=== PATIENT | male | born 1965 | race Caucasian/White ===

== ENCOUNTER 2025-02-09 00:52 | Day surgery (SDC) | payer BC, SELFPAY ==
[2025-01-28 10:14] VITALS: BMI 24.4
--- OUTSIDE RECORDS SUMMARY | 2025-02-09 00:58 | XMS_ITS | Continuity of Care Document ---
Author Organization [facility] Address [address] [place] [address] Phone Care Team Providers Care Home Lending Officer Name Role Phone Mike Clark DO Unavailable Unavailable Allergies, Adverse Reactions, Alerts Substance Reaction Status Criticality Sulfa (Sulfonamide Antibiotics) Rash Active No Information Medications Medication Instructions Dosage Effective Dates (start - stop) Status Comments CYCLOBENZAPRINE 10 MG TABLET TAKE 1 TABLET BY MOUTH THREE TIMES A DAY NEEDED - Active Ambien CR 12.5 mg tablet,extended release take 1 tablet by oral route every day at bedtime as needed 12.5 MG - Active CELECOXIB 100 MG CAPSULE TAKE 1 CAPSULE BY MOUTH TWICE A DAY NEEDED - Active Adderall XR 30 mg capsule,extended release take 1 capsule by oral route every day in the morning upon awakening 30 MG - Active QUETIAPINE FUMARATE 300 MG TAB TAKE 1 TABLET BY MOUTH EVERY DAY - Active bupropion HCl XL 300 mg 24 hr tablet, extended release take 1 tablet by oral route every day 300 MG - Active sildenafil 100 mg tablet TAKE 1 TABLET BY ORAL ROUTE EVERY DAY NEEDED APPROXIMATELY 1 HOUR BEFORE SEXUAL ACTIVITY - Active FOLIC ACID 1MG TABS 2 QD-daily - Activ e multivitamin tablet - Active Calcium 500 500 mg calcium (1,250 mg) tablet 1 po qd - Active CYCLOBENZAPRINE 10 MG TABLET TAKE 1 TABLET BY MOUTH THREE TIMES A DAY NEEDED - No Longer Active Procedures Procedure Date Pt inelig neg scrn depres PREVENTATIVE-EST: 40-64 BODY MASS INDEX DOCD SYST BP LT 130 MM HG DIAST BP < 80 MM HG GENERAL HEALTH PANEL FERRITIN LEVEL FOLIC ACID (S) (FOLATE) IRON (FE), TOTAL TIBC, & % SATURATION LIPID PANEL PSA, TOTAL VITAMIN B12 (SERUM) VITAMIN D, 25-HYDROXY ROUTINE VENIPUNCTURE OFFICE [id number] BODY MASS INDEX DOCD SYST BP LT 130 MM HG DIAST BP 80-89 MM HG Pt inelig neg scrn depres OFFICE [id number]-UAD-[id number] BODY MASS INDEX DOCD SYST BP GE 130 - 139MM HG DIAST BP 80-89 MM HG Pt inelig neg scrn depres OFFICE [id number]-UNF-[id number] BODY MASS INDEX DOCD SYST BP >= 140 MM HG6 IT DIAST BP 80-89 MM HG Pt inelig neg scrn depres IMMUN ADMIN (INC PERCUTANEOUS) SINGLE, F IRST INJ FLU VAC NO PRSV 4 ERIN, 0.5mL DOSAGE CBC, INC PLATELETS AND DIFFERENTIAL COMPREHEN METABOLIC PANEL CMP FERRITIN LEVEL FOLIC ACID (S) (FOLATE) IRON (FE), TOTAL TIBC, & % SATURATION LIPID PANEL PSA, TOTAL ROUTINE VENIPUNCTURE PREVENTATIVE-EST: 40-64 BODY MASS INDEX DOCD SYST BP LT 130 MM HG DIAST BP < 80 MM HG Pt inelig neg scrn depres CBC, INC PLATELETS AND DIFFERENTIAL FERRITIN LEVEL FOLIC ACID (S) (FOLATE) IRON (FE), TOTAL TIBC, & % SATURATION VITAMIN B12 (SERUM) ROUTINE VENIPUNCTURE OFFICE [id number]-TQG-EJYGTECZ BODY MASS INDEX DOCD SYST BP LT 130 MM HG DIAST BP < 80 MM HG Pt inelig neg scrn depres IMMUN ADMIN (INC PERCUTANEOUS) SINGLE, F IRST INJ FLU VAC NO PRSV 4 ERIN, 0.5mL DOSAGE CBC, INC PLATELETS AND DIFFERENTIAL COMPREHEN METABOLIC PANEL CMP LIPID PANEL PSA, TOTAL ROUTINE VENIPUNCTURE OFFICE UZYEY-NPJ-BTUQAZEZ BODY MASS INDEX DOCD SYST BP GE 130 - 139MM HG DIAST BP < 80 MM HG Pt inelig neg scrn depres OFFICE UQZMK-NMI-UQKZAEPB BODY MASS INDEX DOCD SYST BP LT 130 MM HG DIAST BP 80-89 MM HG Pt inelig neg scrn depres IMMUN ADMIN (INC PERCUTANEOUS) SINGLE, F IRST INJ FLU VAC NO PRSV 4 ERIN, 0.5mL DOSAGE OFFICE ZQMRT-DMW-CIXXOQGS BODY MASS INDEX DOCD SYST BP >= 140 MM HG6 IT DIAST BP 80-89 MM HG Pt inelig neg scrn depres DESTRUCT BENIGN LESIONS OTHE R THAN SKIN TAGS OR CUTANEOUS VASCULAR LESIONS UP TO OFFICE [id number]-IJK-GDTQBAGR BODY MASS INDEX DOCD SYST BP GE 130 - 139MM HG DIAST BP 80-89 MM HG Pt inelig neg scrn depres OFFICE DPSKN-GZE-HWLAWTZT BODY MASS INDEX DOCD SYST BP GE 130 - 139MM HG DIAST BP 80-89 MM HG Pt inelig neg scrn depres OFFICE [id number]-[id number]-[id number] BODY MASS INDEX DOCD SYST BP LT 130 MM HG DIAST BP 80-89 MM HG Pt inelig neg scrn depres OFFICE RYRAX-BVW-PRFALXTU BODY MASS INDEX DOCD SYST BP LT 130 MM HG DIAST BP < 80 MM HG Pt inelig neg scrn depres OFFICE JFAKZ-PCU-LTIEMVEA BODY MASS INDEX DOCD SYST BP GE 130 - 139MM HG DIAST BP < 80 MM HG Pt inelig neg scrn depres OFFICE [id number]-VUI-FQJRDSQG Pt inelig neg scrn depres OFFICE MZADG-BBM-DBGKIBCI BODY MASS INDEX DOCD SYST BP LT 130 MM HG DIAST BP < 80 MM HG Pt inelig neg scrn depres OFFICE IKREY-MTJ-KOFTJWCU BODY MASS INDEX DOCD SYST BP LT 130 MM HG DIAST BP < 80 MM HG Pt inelig neg scrn depres OFFICE QMKXE-RZL-YTTTEVYA BODY MASS INDEX DOCD SYST BP >= 140 MM HG6 IT DIAST BP >= 90 MM HG OFFICE LUESW-BAR-NBXKKJEM BODY MASS INDEX DOCD SYST BP GE 130 - 139MM HG DIAST BP 80-89 MM HG Advance Directives Directive Yes / No Effective Date File Name No Information Encounters Encounter Description Practice Location Reason(s) For Visit Diagnoses Date Provider Providers Copied on Encounter [facility], [address], [place], [place], [address] , tel:[phone] [employer] [facility] No Information 0 5 Eduardo Mckeon. [address], [address], [place], [place], [address], . tel:[phone] [facility], [address], [place], [place], [address] , tel: [phone] [employer] No Information 5 Eduardo Mckeon. [address], [address], [place], [place], [address], . tel:[phone] [facility], [address], [place], [place], [address] , tel: [phone] [employer] No Information 5 Eduardo Mckeon. [address], [address], [place], [place], [address], . tel:[phone] [facility], [address], [place], [place], [address] , tel: [phone] [facility] No Information 5 Eduardo Mckeon. [address], [address], [place], [place], [address], [place]. tel:[phone] [facility], [address], [place], [address] , tel: [phone] [employer] [facility] No Information 8 5 Eduardo Mckeon. [address], [address], [place], [place], [address], [place]. tel:[phone] [facility], [address], [place], [address] , [place] tel: [phone] [facility] No Information 4 Eduardo Mckeon. [address] [facility] [address] , [address], [place], [place], [address], [place]. tel:[phone] PREVENTATIVE -EST: 40-64 [employer], [address], [place], [address] , [place] tel: [phone] [facility] preventive exam (chief complaint)F ollow up chronic conditions (chief complaint) Ankylosing spondylitis of site in spineCrohn's disease without complication, unspecified gastrointestinal tract locationRecurren t major depressive disorder, in full remissionPsychop hysiological insomniaADHD, predominantly inattentive typeEncounter for general adult medical examination with abnormal findingsOther terminal worker (current) drug therapyProstate cancer screeningScreeni ng for lipoid disordersAlcohol ism in remission 4 Eduardo Mckeon. [address] [facility] [address] , [address], [place], [place], [address], [place]. tel:[phone] Referring Provider: Mike Clark, [address] [place] [address] [address], [place], [address] . tel:[phone] [facility], [address], [place], [place], [address] , [place] tel: [phone] [facility] No Information 4 Arcelia Fountain. [address] [facility] , [address], [place], [place], [address], [place]. tel:[phone] [facility], [address], [place], [place], [address] , [place] tel: [phone] [facility] No Information 4 Fadi Steele. [address] [facility], [address], [place], [place], [address], . tel:[phone] OFFICE JYAGJ-JUF-VO PANDED [facility], [address], [place], [place], [address] , tel: [phone] [facility] acute problem (chief complaint) Body mass index [BMI] 26.0-26.9, adultPlantar fasciitis, left Jun- 4 Eduardo Mckeon. [address], [address], [place], [place], [address], . tel:[phone] Referring Provider: Mike Clark, [address], [place], [address] . tel:[phone] OFFICE FNUGR-XHD-QV PANDED [facility], [address], [place], [place], [address] , tel: [phone] [facility] acute (chief complaint) Plantar fasciitis, leftBody mass index [BMI] 25.0-25.9, adult May- 4 Arcelia Fountain. [address], [address], [place], [place], [address], . tel:[phone] Referring Provider: Mike Clark, [address], [place], [address] . tel:[phone] [facility], [address], [place], [place], [address] , tel: [phone] [facility] Crohn's disease without complication, unspecified gastrointestinal tract locationColon cancer screening 4 Eduardo Mckeon. [address], [address], [place], [place], [address], [place]. tel:[phone] OFFICE JUENG-BRA-IE TAILED [facility], [address], [place], [place], [address] , tel: [phone] [facility] Follow up chronic conditions (chief complaint) ADHD, predominantly inattentive typeCrohn's disease without complication, unspecified gastrointestinal tract locationAnkylosi ng spondylitis of site in spinePsychophysi ological insomniaRecurren t major depressive disorder, in full remission 4 Eduardo Mckeon. [address], [address], [place], [place], [address], . tel:[phone] Referring Provider: Mike Clark, [address], [place], [address] . tel:[phone] PREVENTATIVE -EST: 40-64 [facility] [address], [address], [place], [place], [address] , tel: [phone] [facility] preventive exam (chief complaint)F ollow up chronic conditions (chief complaint) Encounter for general adult medical examination with abnormal findingsADHD, predominantly inattentive typeIron deficiency anemia, unspecified iron deficiency anemia typeCrohn's disease without complication, unspecified gastrointestinal tract locationAnkylosi ng spondylitis of site in spineRecurrent major depressive disorder, in full remissionPsychop hysiological insomniaOther fci (current) drug therapyScreening for lipoid disordersFolate deficiencyProsta te cancer screeningEncount er for immunizationAlco holism in remission 3 Eduardo Mckeon. [address], [address], [place], [place], [address], [place]. [phone] Referring Provider: Mike Clark, [address], [place], [address] . tel:[phone] [facility], [address], [place], [place], [address] , tel: [phone] [facility] Anemia, unspecified type Apr-0 3 Eduardo [address]keon. [address] [facility] [address], [address], [place], [place], [address], [place]. [phone] OFFICE GRSPW-YOO-RJ TAILED [facility], [address], [place], [place], [address] , [place] tel: [phone] [facility] Follow up chronic conditions (chief complaint) ADHD, predominantly inattentive typePsychophysio logical insomniaCrohn's disease without complication, unspecified gastrointestinal tract locationRecurren t major depressive disorder, in full remissionAnkylos ing spondylitis of site in spineAnemia, unspecified type Mar- 3 Eduardo Mckeon. [address], [address], [place], [place], [address], [place]. tel:[phone] Referring Provider: Mike Clark, [address], [place], [address] . tel:[phone] [facility], [address], [place], [address] , [place] tel: [phone] [facility] No Information 3 Eduardo Mckeon. [address], [address], [place], [place], [address], [place]. tel:[phone] [facility], [address], [place], [place], [address] , tel: [phone] [facility] Iron deficiency anemia, unspecified iron deficiency anemia type 2 Eduardo Mckeon. [address] [facility] [address], [address], [place], [place], [address], [place]. tel:[phone] OFFICE BFJEI-YSK-UU TAILED [facility], [address], [place], [address] , [place] tel: [phone] [facility] Follow up chronic conditions (chief complaint) Recurrent major depressive disorder, in full remissionADHD, predominantly inattentive typeAnkylosing spondylitis of site in spineCrohn's disease without complication, unspecified gastrointestinal tract locationPsychoph ysiological insomniaLong term current use of therapeutic drugScreening for diabetes mellitusLipid screeningProstat e cancer screening 2 Eduardo Mckeon. [address], [address], [place], [place], [address], [place]. tel:[phone] Referring Provider: Mike Clark, [address], [place], [address] . tel:[phone] OFFICE TKGWC-YDU-LK TAILED [facility], [address], [place], [place], [address] , tel: [phone] [facility] Follow up chronic conditions (chief complaint) Screening for diabetes mellitusLong term current use of therapeutic drugLipid screeningProstat e cancer screeningADHD, predominantly inattentive typeRecurrent major depressive disorder, in full remissionPsychop hysiological insomniaAnkylosi ng spondylitis of site in spineCrohn's disease without complication, unspecified gastrointestinal tract location 2 Eduardo Mckeon. [address], [address], [place], [place], [address], . tel:[phone] Referring Provider: Mike Clark, [address], [place], [address] . tel:[phone] [facility], [address], [place], [place], [address] , tel: [phone] [facility] No Information 2 Eduardo Mckeon. [address] [facility] [address], [address], [place], [place], [address], [place]. tel:[phone] OFFICE TWTET-JDK-QP TAILED [facility], [address], [place], [place], [address] , tel: [phone] [facility] Follow up chronic conditions (chief complaint) Body mass index [BMI] 27.0-27.9, adultADHD, predominantly inattentive typeRecurrent major depressive disorder, in full remissionPsychop hysiological insomniaAnkylosi ng spondylitis of site in spineCrohn's disease without complication, unspecified gastrointestinal tract location 1 Eduardo Mckeon. [address], [address], [place], [place], [address], [place]. tel:[phone] Referring Provider: [address], [place], [address] . tel:[phone] OFFICE NNEPL-OBH-MM TAILED [facility], [address], [place], [place], [address] , tel: [phone] [facility] Follow up chronic conditions (chief complaint) Ankylosing spondylitis of site in spineCrohn's disease without complication, unspecified gastrointestinal tract locationADHD, predominantly inattentive typeActinic keratosisLipid screeningOSA (obstructive sleep apnea) 1 Eduardo Mckeon. [address], [address], [place], [place], [address], . tel:[phone] Referring Provider: Mike Clark, [address], [place], [address] . tel:[phone] OFFICE JYNQB-ASJ-ZK TAILED [facility], [address], [place], [place], [address] , tel: [phone] [facility] Follow up chronic conditions (chief complaint) Body mass index (BMI) 27.0-27.9, adultAnkylosing spondylitis of site in spineCrohn's disease without complication, unspecified gastrointestinal tract locationADHD, predominantly inattentive typeOSA (obstructive sleep apnea)Psychophys iological insomniaAlcoholi sm in remissionRecurre nt major depressive disorder, in full remission 1 Eduardo Mckeon. [address], [address], [place], [place], [address], . tel:[phone] Referring Provider: Mike Clark, [address], [place], [address] . tel:[phone] [facility], [address], [place], [place], [address] , tel: [phone] [facility] NEHA (obstructive sleep apnea) 1 Eduardo Mckeon. [address], [address], [place], [place], [address], [place]. tel:[phone] OFFICE IBWKU-XHF-OT TAILED [facility], [address], [place], [place], [address] , tel: [phone] [facility] Follow up chronic conditions (chief complaint) ADHD, predominantly inattentive typePsychophysio logical insomniaCrohn's disease without complication, unspecified gastrointestinal tract locationAnkylosi ng spondylitis of site in spineSleep apnea, unspecified type 0 Eduardo Mckeon. [address], [address], [place], [place], [address], . tel:[phone] Referring Provider: [address] [facility], [place], [address] . tel:[phone] OFFICE WYLCP-EHE-QL PANDED [facility], [address], [place], [place], [address] , tel: [phone] [facility] acute visit (chief complaint) Somnolence, daytime 0 Eduardo Mckeon. [address], [address], [place], [place], [address], . tel:[phone] Referring Provider: Mike Clark, [address] [facility], [place], [address] . tel:[phone] OFFICE MPSVA-NCB-LT [facility], [address], [place], [place], [address] , tel: [phone] [facility] Follow up chronic conditions (chief complaint) ADHD, predominantly inattentive typeCrohn's disease without complication, unspecified gastrointestinal tract locationAnkylosi ng spondylitis of site in spineAlcoholism in remissionRecurre nt major depressive disorder, in full remissionPsychop hysiological insomnia 0 Eduardo Mckeon. [address], [address], [place], [place], [address], . tel:[phone] Referring Provider: Mike Clark, [address], [place], [address] . tel:[phone] OFFICE DZAPJ-XKV-QM [facility], [address], [place], [place], [address] , tel: [phone] [facility] Follow up chronic conditions (chief complaint) Crohn's disease without complication, unspecified gastrointestinal tract locationAnkylosi ng spondylitis of site in spineAlcoholism in remissionRecurre nt major depressive disorder, in full remission 0 Eduardo Mckeon. [address], [address], [place], [place], [address], [place]. [phone] Referring Provider: Mike Clark, [address], [place], [address] . tel:[phone] OFFICE HFQZZ-BGW-AA [facility], [address], [place], [place], [address] , tel: [phone] [facility] acute visit (chief complaint) Body mass index (BMI) 22.0-22.9, adultAcute bronchitis, unspecified organism 0 Arcelia Fountain. [address], [address], [place], [place], [address], [place]. tel:[phone] Referring Provider: Mike Clark, [address], [place], [address] . tel:[phone] OFFICE CWYGN-BCX-MA TAILED [facility] [address], [address], [place], [place], [address] , tel: [phone] [facility] Follow up chronic conditions (chief complaint) Alcoholism in remissionAnkylos ing spondylitis of site in spineCrohn's disease without complication, unspecified gastrointestinal tract locationADHD, predominantly inattentive typeRecurrent major depressive disorder, in full remission 0 Eduardo Mckeon. [address], [address], [place], [place], [address], [place]. tel:[phone] Referring Provider: Mike Clark, [address], [place], [address] . tel:[phone] OFFICE WKGWL-FUT-SG [facility], [address], [place], [address] , [place] tel: [phone] [facility] acute visit (chief complaint) Seasonal allergic rhinitis, unspecified trigger Jun- 9 Edu[address], [address], [place], [place], [address], [place]. tel:[phone] Referring Provider: Mike Clark, [address], [place], [address] . tel:[phone] OFFICE HTDHO-XGX-HL PANDED [facility], [address], [place], [place], [address] , tel: [phone] [facility] acute visit (chief complaint) PolyuriaAnkylosi ng spondylitis of site in spine Chuck- 9 Eduardo Mckeon. [address], [address], [place], [place], [address], [place]. tel:[phone] Referring Provider: [address], [place], [address] . tel:[phone] [facility], [address], [place], [place], [address] , tel: [phone] [facility] Acute gastroenteritis 9 Eduardo Mckeon. [address], [address], [place], [place], [address], [place]. tel:[phone] Referring Provider: [address], [place], [address] . tel:[phone] [facility], [address], [place], [place], [address] , tel: [phone] [facility] Alcoholism in remissionRecurre nt major depressive disorder, in full remissionADHD, predominantly inattentive typeCrohn's disease without complication, unspecified gastrointestinal tract locationAnkylosi ng spondylitis of site in spine 9 Eduardo Mckeon. [address], [address], [place], [place], [address], [place]. tel:[phone] Referring Provider: [address], [place], [address] . tel:[phone] [facility], [address], [place], [place], [address] , tel: [phone] [facility] Alcoholism in remissionRecurre nt major depressive disorder, in full remissionADHD, predominantly inattentive typeCrohn's disease without complication, unspecified gastrointestinal tract locationAnkylosi ng spondylitis of site in spine 8 Eduardo Mckeon. [address], [address], [place], [place], [address], [place]. tel:[phone] Referring Provider: Mike Clark, [address], [place], [address] . tel:[phone] [facility], [address], [place], [place], [address] , tel: [phone] [facility] Ankylosing spondylitis of site in spineCrohn's disease without complication, unspecified gastrointestinal tract locationADHD, predominantly inattentive typeRecurrent major depressive disorder, in full remissionAlcohol ism in remission 8 Eudardo Mckeon. [address], [address], [place], [place], [address], [place]. tel:[phone] Referring Provider: Mike Clark, [address], [place], [address] . tel:[phone] [facility], [address], [place], [place], [address] , tel: [phone] [facility] Ankylosing spondylitis of site in spineADHD, predominantly inattentive typeRecurrent major depressive disorder, in full remissionAlcohol ism 8 Eduardo Mckeon. [address], [address], [place], [address], [place]. tel:[phone] Referring Provider: Mike Clark, [address], [place], [address] . tel:[phone] [facility], [address], [place], [place], [address] , tel: [phone] [facility] EnuresisAnkylosi ng spondylitis of site in spineAlcoholism in remission 8 Eduardo Mckeon. [address], [address], [place], [place], [address], . tel:[phone] Referring Provider: Mike Clark, [address], [place], [address] . tel:[phone] [facility], [address], [place], [place], [address] , tel: [phone] [facility] Non-intractable vomiting with nausea, unspecified vomiting typeRecurrent major depressive disorder, in full remissionADHD, predominantly inattentive type 8 Eduardo Mckeon. [address], [address], [place], [place], [address], . tel:[phone] Referring Provider: Mike Clark, [address], [place], [address] . tel:[phone] [facility], [address], [place], [place], [address] , tel: [phone] [facility] ADHD, predominantly inattentive typeRecurrent major depressive disorder, in full remissionMouth ulcersAnkylosing spondylitis of site in spineCrohn's disease without complication, unspecified gastrointestinal tract locationEpistaxi sArachnoid cyst 7 Eduardo Mckeon. [address], [address], [place], [place], [address], . tel:[phone] Referring Provider: Mike Clark, [address], [place], [address] . tel:[phone] [facility], [address], [place], [place], [address] , tel: [phone] [facility] MyoclonusADHD, predominantly inattentive typeMouth ulcersArachnoid cyst 7 Eduardo Mckeon. [address], [address], [place], [place], [address], . tel:[phone] Referring Provider: Mike Clark, [address], [place], [address] . tel:[phone] [facility], [address], [place], [place], [address] , tel: [phone] [facility] Memory changeNew onset headacheMyoclonu sElevated blood pressure reading in office with diagnosis of hypertensionCroh n's disease without complication, unspecified gastrointestinal tract locationAnkylosi ng spondylitis of site in spineADHD, predominantly inattentive typeRecurrent major depressive disorder, in full remission 7 Eduardo Mckeon. [address], [address], [place], [place], [address], . tel:[phone] Referring Provider: Mike Clark, [address], [place], [address] . tel:[phone] [facility], [address], [place], [place], [address] , tel: [phone] [facility] Encounter for long-term (current) use of other medicationsADHD, predominantly inattentive typeAnkylosing spondylitis of site in spineMajor depressive disorder, recurrent episode, moderateCrohn's disease without complication, unspecified gastrointestinal tract locationLighthea dednessNausea 7 Eduardo Mckeon. [address], [address], [place], [place], [address], . tel:[phone] Referring Provider: Mike Clark, [address], [place], [address] . tel:[phone] [facility], [address], [place], [place], [address] , tel: [phone] [facility] ADHD, predominantly inattentive typeAnkylosing spondylitis of site in spineCrohn's disease without complication, unspecified gastrointestinal tract location 7 Eduardo [address]ke[address]. [address] [facility] [address], [place], [place], [address], [place]. tel: [phone] Referring Provider: Mike Clark, [address], [place], [address] . tel:[phone] [facility], [address], [place], [place], [address] , tel: [phone] [facility] Dorsalgia, unspecified 6 Eduardo Mckeon. [address], [address], [place], [place], [address], [place]. tel: [phone] [facility], [address], [place], [place], [address] , [place] tel: [phone] [facility] Dorsalgia, unspecifiedAnkyl osing spondylitis of site in spine 6 Eduardo Mckeon. [address] [facility], [place], [place], [address], . tel: [phone] [facility], [address], [place], [place], [address] , [place] tel: [phone] [facility] ADHD, predominantly inattentive type 6 Eduardo Mckeon. [address], [address], [place], [place], [address], [place]. tel: [phone] Referring Provider: Mike Clark, [address], [place], [address] . tel:[phone] [facility], [address], [place], [place], [address] , [place] tel: [phone] [facility] Pharyngitis, unspecified etiology 6 Eduardo Mckeon. [address], [address], [place], [place], [address], [place]. tel:[phone] Referring Provider: Mike Clark, [address], [place], [address] . tel:[phone] [facility], [address], [place], [place], [address] , tel: [phone] [facility] ADHD, predominantly inattentive typeRecurrent major depressive disorder, in full remissionPsychop hysiological insomnia Jun- 6 Eduardo Mckeon. [address], [address], [place], [place], [address], . tel:[phone] Referring Provider: Mike Clark, [address], [place], [address] . tel:[phone] [facility], [address], [place], [place], [address] , tel: [phone] [facility] Ankylosing spondylitis of site in spineADHD, predominantly inattentive typePrimary insomniaCrohn's disease without complication, unspecified gastrointestinal tract locationRecurren t major depressive disorder, in full remission 6 Eduardo Mckeon. [address], [address], [place], [place], [address], . tel: [phone] Referring Provider: Mike Clark, [address], [place], [address] . tel:[phone] [facility] [address], [address], [place], [place], [address] , tel: [phone] [facility] Ankylosing spondylitis of site in spine 6 Eduardo Mckeon. [address], [address], [place], [place], [address], [place]. tel: [phone] [facility], [address], [place], [place], [address] , tel: [phone] [facility] ADHD, predominantly inattentive typeMajor depressive disorder, recurrent episode, moderateCrohn's disease without complication, unspecified gastrointestinal tract locationAnkylosi ng spondylitis Nov- 6 Eduardo Mckeon. [address], [address], [place], [place], [address], [place]. tel:[phone] Referring Provider: Mike Clark, [address], [place], [address] . tel:[phone] [facility], [address], [place], [place], [address] , tel: [phone] [facility] Ankylosing spondylitisCrohn 's disease without complication, unspecified gastrointestinal tract locationADHD, predominantly inattentive typePrimary insomniaMajor depressive disorder, recurrent episode, moderate 5 Eduardo Mckeon. [address], [address], [place], [address], [place]. tel:[phone] Referring Provider: Mike Clark, [address], [place], [address] . tel:[phone] [facility], [address], [place], [address] , [place] tel: [phone] [facility] Dorsalgia, unspecifiedAnkyl osing spondylitis of unspecified sites in spine 5 Eduardo Mckeon. [address], [address], [place], [place], [address], [place]. tel:[phone] [facility], [address], [place], [place], [address] , [place] tel: [phone] [facility] Ankylosing spondylitisADHD, predominantly inattentive typeCrohns diseaseMajor depressive disorder, recurrent episodeInsomnia 5 Eduardo Mckeon. [address], [address], [place], [place], [address], [place]. tel:[phone] Referring Provider: Mike Clark, [address], [place], [address] . tel:[phone] [facility], [address], [place], [place], [address] , tel: [phone] [facility] No Information 5 Eduardo Mckeon. [address] [facility], [place], [place], [address], [place]. tel:[phone] [facility], [address], [place], [place], [address] , [place] tel:[phone] [facility] Pneumonia February-2 5 Eduardo [address]keon. [address], [address], [place], [place], [address], [place]. tel:[phone] [facility], [address], [place], [place], [address] , [place] tel:[phone] [facility] Pleural effusion associated with pulmonary infection 5 Eduardo Mckeon. [address], [address], [place], [place], [address], [place]. tel:[phone] Referring Provider: Mike Clark, [address], [place], [address] . tel:[phone] [facility], [address], [place], [place], [address] , tel:[phone] [facility] Pleural effusion associated with pulmonary infection 5 Eduardo Mckeon. [address], [address], [place], [place], [address], [place]. tel:[phone] [facility], [address], [place], [address] , [place] tel:[phone] [facility] Pleural effusion associated with pulmonary infection 0 5 Eduardo Mckeon. [address], [address], [place], [place], [address], [place]. tel:[phone] [facility], [address], [place], [place], [address] , [place] tel:[phone] [facility] Back painCoughShortne ss of breathChest painPleural effusion February-0 5 5 Eduardo Mckeon. [address], [address], [place], [place], [address], [place]. tel:[phone] Referring Provider: Mike Clark, [address], [place], [address] . tel:[phone] [facility], [address], [place], [place], [address] , [place] tel: [phone] [facility] Ankylosing spondylitisRib pain May-0 5 Edu[address], [address], [place], [place], [address], [place]. tel:[phone] Referring Provider: Mike Clark, [address], [place], [address] . tel:[phone] [facility], [address], [place], [place], [address] , [place] tel: [phone] [facility] Trigger point of thoracic region Dec-2 - 5 Eduardo Mckeon. [address] [facility] [address], [place], [place], [address], [place]. tel:[phone] Referring Provider: Mike Clark, [address], [place], [address] . tel:[phone] [facility], [address], [place], [place], [address] , [place] tel: [phone] [facility] Other ill-defined disorder of eye Dec-2 5 Eduardo Mckeon. [address], [address], [place], [place], [address], [place]. tel:[phone] [facility], [address], [place], [address] , [place] tel: [phone] [facility] ANKYLOSING SPONDYLITISADHD, predominantly inattentive typeTrigger point of left shoulder region 5 Eduardo Mckeon. [address], [address], [place], [place], [address], [place]. tel:[phone] Referring Provider: Mike Clark, [address], [place], [address] . tel:[phone] [facility], [address], [place], [address] , [place] tel: [phone] [facility] No Information 1 Julio Lincoln. [address], [place], [place], [address], [place]. tel:[phone] [facility] [address], [address], [place], [place], [address] , [place] tel: [phone] [facility] FX LUMBAR VERTEBRA-CLOSE 9 Lv Lincoln. [address], [address], [place], [place], [address]. tel:[phone] [facility], [address], [place], [place], [address] , [place] tel: [phone] [facility] ANKYLOSING SPONDYLITIS 9 Rasta Yen. [address], [place], [place], [address], [place]. tel:[phone] [facility], [address], [place], [place], [address] , [place] tel: [phone] [facility] ROUTINE MEDICAL EXAM 9 Conversion Doctor. [address], [place], [address], [place]. [facility], [address], [place], [place], [address] , [place] tel: [phone] [facility] CERVICAL DISC DISPLACMNTREGION AL ENTERITIS NOSLONG-TERM USE MEDS NEC 9 Lv Lincoln. [address], [address], [place], [place], [address]. tel:[phone] [facility], [address], [place], [place], [address] , [place] tel: [phone] [facility] HEADACHEBURSITIS NEC 200 9 Lv Lincoln. [address], [address], [place], [place], [address]. tel:[phone] [facility], [address], [place], [place], [address] , [place] tel: [phone] [facility] ACUTE GASTRTIS W/O HMRHG 9 Conversion Doctor. [address], [place], [address], [place]. [facility], [address], [place], [place], [address] , [place] tel: [phone] [facility] BACKACHE NOS 9 Lv Lincoln. [address], [address], [place], [place], [address]. tel:[phone] [facility], [address], [place], [place], [address] , [place] tel: [phone] [facility] JOINT PAIN-PELVIS 8 Lv Lincoln. [address], [address], [place], [place], [address]. tel:[phone] [facility], [address], [place], [place], [address] , [place] tel: [phone] [facility] OSTEOPOROSIS NOS 8 Lv Lincoln. [address], [address], [place], [place], [address]. tel:[phone] [facility], [address], [place], [place], [address] , [place] tel: [phone] [facility] ACUTE SINUSITIS NOS 7 Rastarobert Barlow. [address], [place], [place], [address], [place]. tel: [phone] [facility], [address], [place], [place], [address] , [place] tel: [phone] [facility] No Information 7 Julio Lincoln. [address], [place], [place], [address], [place]. tel:[phone] [facility], [address], [place], [place], [address] , [place] tel: [phone] [facility] LIVER FUNCTION STUDY 7 Lv Lincoln. [address], [address], [place], [place], [address]. tel:[phone] Family History Family Member Type Diagnosis Age At Onset Father Problem (finding) osteoarthritis Problem (finding) Family history of alzhe geo's disease Father Problem (finding) hypertension Immunizations Vaccine Date Status Comments Pneumococcal conjugate PCV20 , polysaccharide OOT873 conjugate, adjuvant, PF administered Source: Other Pr ovider zoster recombinant administered Source: O ther Provider Influenza, MDCK, trivalent, PF administer ed Source: Other Provider COVID-19, mRNA, LNP-S, PF, christine-sucrose, 30 mcg/0.3 mL administered Source: Othe r Provider Fluzone Quad, preservative free, split virus, 0.5mL dosage administered Source: New Immunization Record zoster recombinant administered Source: O ther Provider Fluzone Quad, preservative free, split virus, 0.5mL dosage administered Source: New Immunization Record Pfizer (Diluent Reconstitute d) COVID19 Vaccine, 0.3mL per dose, 2 doses, administered 21 days apart administered Note: [facility] ; Source: Other Registry Fluzone Quad, preservative free, split virus, 0.5mL dosage administered Source: New Immunization Record J&J COVID/Adenovirus Vaccine [id number] viral particles/0.5mL administered Source: Ot er Registry Influenza, injectable, quadrivalent, preservative free, 3 yrs or older refused Source: New Immuniz ation Record Influenza, injectable, quadrivalent, preservative free, 3 yrs or older refused Source: New Immuniz ation Record Td (adult) preservative free administered Note: per prior medical records ; Source: Other Registry Payers Payer name Insurance type Covered constitution party ID Authoriza tion(s) BCBS ACCESS BL [id number] BCBS ACCESS BL [id number] BCBS ACCESS BL [id number] BCBS ACCESS BL [id number] [employer] SRC CI [id number] [employer] NAP CI [id number] Social History Type Description Quantity Date Captured Comments Sex Male Smoking Status No Information Chief Complaint And Reason For Visit No Information Reason For Referral Reason For Referral No Information Plan Of Treatment Date Type Action Status Goal Dietary manageme nt education, guidance, and counseling completed Goal Dietary manageme nt education, guidance, and counseling completed Goal Dietary manageme nt education, guidance, and counseling completed Goal Tobacco cessation counseling completed Goal Dietary manageme nt education, guidance, and counseling completed Referral Ordered: COLONOSCOPY, Flexible, Proximal To Splenic, Diagnostic, Wor W/O Collection Of Sp ordered Referral Referred To: [address], [id number] Ordered: COLONOSCOPY, FLEXIBLE, DIAGNOSTIC W/ COLLECTION OF SPECIMEN ordered Referral Ordered: Colonoscopy in adult ordered Referral Ordered: Alan Mcarthur (related to NEHA (obstructive sleep apnea)) ordered Referral Referred To: Alan Mcarthur Ordered: Referrals: Alan Mcarthur. Evaluate and treat - Level 2 ordered Referral Ordered: Chest Xray, 2 Views ordered Appointment Brenden Stallworth BOOKED Future Order: Lab Order Iron/TIB C Panel ([id number]), Sent on: Sent Future Order: Lab Order Vitamin B12 ([id number]), Sent on: Sent Future Order: Lab Order Ferritin ([id number]), Sent on: Sent Future Order: Lab Order Folic Ac id (Folate), Serum ([id number]), Sent on: Sent Future Order: Lab Order Lipid Pa nakul W/Reflex To Direct LDL ([id number]), Sent on: Sent Future Order: Lab Order Comprehe nsive Metabolic (CMP) ([id number]), Sent on: Sent Future Order: Lab Order PSA ([id number]), Sent on: Sent Future Order: Lab Order CBC AUTO DIFF ([id number]), Sent on: Sent Future Order: Radiology Order MR I of brain with contrast ([id number]), Sent on: Sent History Of Present Illness Encounter Date Complaint History Of Prese nt Illness preventive exam Men's preventive visit. Patient Health Questionnaire (PHQ-2) is negative. Patient is on a healthy diet. The patient has no weight gain/loss. Concern(s)/Requests Detail: See HPI. Relevant history is positive for alcohol use. The patient is a former tobacco user. Follow up chronic conditions Was here 2 months ago for plantar fasciitis and given usual instructions and a referral to podiatry if no improvement. Saw curriculum specialist twice and got injections twice and said it feels 99% better. Alcoholism - Has not been drinking alcohol and is not taking Campral for prevention. Has been busy at work at [employer]. No cravings. ADHD - attention and focus are good on Adderall XR 30 mg daily. Needs refill now but not taking it as much as when baseball season is going on. NEHA - There may be times he has sleepy spells during the day. Sleeps on his side. Depression - controlled on current treatment that was initiated by his psychiatrist who retired. Has been stable on seroquel and wellbutrin. working out every day. Crohn's disease - Used to see Dr. Oliveira, is controlled and is supposed to get a colonoscopy. Crohn's is about the same without Humira. Has not seen a GI since Tee. Needs colonoscopy. Not on Humira since the pandemic and feels better without it. Wants to get his colonoscopy at [facility]. Iron deficiency anemia and folic acid level was low also. Taking folic acid. Ankylosing spondylitis - used to be treated by Dr. Daniels with Humira and methotrexate but stopped and doesn't notice much of a difference. Taking 2 celebrex after working out and that helps and has not any more pain than when he was on methotrexate and Humira. Used to see Dr. Culp for pain management but not seeing anyone any longer. He was on Butrans which helped a little but then switched to tramadol and baclofen which did not help and so now is taking nothing for pain. Started taking celebrex though and takes it after he works out. Insomnia - takes ambien cr 12.5 1 every night to help him sleep along with the seroquel. Lunesta did not help. Trazodone caused weird dreams of flashing colors. Used to drink alcohol to help him sleep. Will have a cycle of good sleep for a night and then progressively worse.Got flu vaccine today and pneumonia vaccine and Covid vaccine.Had 1st shingles vaccine and needs the second. acute problem Chief complaint: left foot pain. Only hurts when he is resting and then stands up. Trying to stretch foot while driving. Stretching, ice, voltaren gel. Took celebrex for inflammation. Started about 5 weeks ago. When he goes to gym he is not doing anything high impact. No exercise routine changes. Was doing box jumps and jump rope for a long time. Bought new shoes. Bad when he first gets up in the morning. Angular chelitis - left side and back and forth, and using vaseline, antibiotics, diaper cream, and antifungal cream. Pérez a little at times. First started about 8 weeks ago. ';. acute 58 yo WM with R heel starting to hurt 2 weeks ago. Now with any rest starts to hurt until he is up 20 minuted Follow up chronic conditions Alc oholism - Has not been drinking alcohol and is not taking Campral for prevention. Has been busy at work at [employer] [place]. No cravings. Has a little cough and night and chest congestion. + dranage lately. Does take Zyrtec as needed and did take some a couple of nights ago. Nose runs before the cough. No sore throat. ADHD - attention and focus are good on Adderall XR 30 mg daily. NEHA - There may be times he has sleepy spells during the day. Sleeps on his side. Depression - controlled on current treatment that was initiated by his psychiatrist who retired. Has been stable on seroquel and wellbutrin. Crohn's disease - Used to see Dr. Oliveira, is controlled and is supposed to get a colonoscopy. Crohn's is about the same without Humira. Has not seen a GI since Tee. Needs colonoscopy. Not on Humira since the pandemic and feels better without it. Wants to get his colonoscopy at [facility]. Iron deficiency anemia and folic acid level was low also. Ankylosing spondylitis - used to be treated by Dr. Daniels with Humira and methotrexate but stopped and doesn't notice much of a difference. Taking 2 celebrex after working out and that helps and has not any more pain than when he was on methotrexate and Humira. Used to see Dr. Culp for pain management but not seeing anyone any longer. He was on Butrans which helped a little but then switched to tramadol and baclofen which did not help and so now is taking nothing for pain. Started taking celebrex though. Insomnia - takes ambien cr 12.5 1 every night to help him sleep along with the seroquel. Lunesta did not help. Trazodone caused weird dreams of flashing colors. Used to drink alcohol to help him sleep. Will have a cycle of good sleep for a night and then progressively worse.Got flu vaccine today. Had 1st shingles vaccine and needs the second. Is going to get Covid vaccine. preventive exam Follow up chronic conditions Alc oholism - Has not been drinking alcohol and is not taking Campral for prevention. Has been busy at work at [employer]. No cravings. ADHD - attention and focus are good on Adderall XR 30 mg daily. Having sleepy spells. Has happened twice in the past couple of weeks and both times was at home. NEHA - There may be times he has sleepy spells during the day. Sleeps on his side. Depression - controlled on current treatment that was initiated by his psychiatrist who retired. Has been stable on seroquel and wellbutrin. Crohn's disease - Used to see Dr. Oliveira, is controlled and is supposed to get a colonoscopy. Crohn's is about the same without Humira. Has not seen a GI since Tee. Needs colonoscopy. Not on Humira since the pandemic and feels better without it. Wants to get his colonoscopy at [facility]. Iron deficiency anemia and folic acid level was low also. Ankylosing spondylitis - used to be treated by Dr. Daniels with Humira and methotrexate but stopped and doesn't notice much of a difference. Taking 2 celebrex after working out and that helps and has not any more pain than when he was on methotrexate and Humira. Used to see Dr. Culp for pain management but not seeing anyone any longer. He was on Butrans which helped a little but then switched to tramadol and baclofen which did not help and so now is taking nothing for pain. Started taking celebrex though. Insomnia - takes ambien cr 12.5 1 every night to help him sleep along with the seroquel. Lunesta did not help. Trazodone caused weird dreams of flashing colors. Used to drink alcohol to help him sleep. Will have a cycle of good sleep for a night and then progressively worse.Got flu vaccine today. Had 1st shingles vaccine and needs the second. Is going to get Covid vaccine. Follow up chronic conditions Alc oholism - Has not been drinking alcohol and is not taking Campral for prevention. Has been busy at work at [employer]. No cravings. ADHD - attention and focus are good on Adderall but now on Vyvanse due to backordered. Having sleepy spells. Has happened twice in the past couple of weeks and both times was at home. NEHA - There may be times he has sleepy spells during the day. Sleeps on his side. Depression - controlled on current treatment that was initiated by his psychiatrist who retired. Has been stable on seroquel and wellbutrin. Crohn's disease - Used to see Dr. Oliveira, is controlled and is supposed to get a colonoscopy. Crohn's is about the same without Humira. Has not seen a GI since Tee. Needs colonoscopy. Not on Humira since the pandemic and feels better without it. Wants to get his colonoscopy at [facility]. Ankylosing spondylitis - treated by Dr. Daniels and is under control. Used to see Dr. Culp, then after she retired saw Dr. Almaguer who told him he could not help him so he is now seeing a new pain management doctor, Tahmina. Is not giving him any medicine yet and wants to see if Dr. Stewart has any treatment to offer. Tahmina took x rays of his neck He was on Butrans which helped a little but then switched to tramadol and baclofen which did not help and so now is taking nothing for pain. Stopped methotrexate. Started taking celebrex though. Started getting right hip and rarely bothers him. Insomnia - takes ambien cr 12.5 1 every night to help him sleep along with the seroquel and takes ambien about 5 nights per week. Lunesta did not help. Trazodone caused weird dreams of flashing colors. Used to drink alcohol to help him sleep. Will have a cycle of good sleep for a night and then progressively worse. Follow up chronic conditions Has not been drinking alcohol and is not taking Campral for prevention. Has been busy at work at [employer]. No cravings. ADHD - attention and focus are good on Adderall. Having sleepy spells. Has happened twice in the past couple of weeks and both times was at home. NEHA - There may be times he has sleepy spells during the day. Sleeps on his side. Depression - controlled on current treatment that was initiated by his psychiatrist who retired. Has been stable on seroquel and wellbutrin. Crohn's disease - Used to see Dr. Oliveira, is controlled and is supposed to get a colonoscopy. Crohn's is about the same without Humira. Has not seen a GI since Tee. Needs colonoscopy. Not on Humira since the pandemic and feels better without it.Ankylosing spondylitis - treated by Dr. Daniels and is under control. Used to see Dr. Culp, then after she retired saw Dr. Almaguer who told him he could not help him so he is now seeing a new pain management doctor, Tahmina. Is not giving him any medicine yet and wants to see if Dr. Stewart has any treatment to offer. Tahmina took x rays of his neck He was on Butrans which helped a little but then switched to tramadol and baclofen which did not help and so now is taking nothing for pain. Stopped methotrexate. Started taking celebrex thought. Started getting right hip and rarely bothers him. Insomnia - takes ambien cr 12.5 1 every night to help him sleep along with the seroquel and takes ambien about 5 nights per week. Lunesta did not help. Trazodone caused weird dreams of flashing colors. Used to drink alcohol to help him sleep. Will have a cycle of good sleep for a night and then progressively worse. Got J and J vaccine [facility]. Son was positive for Covid after cheondoism camp so Brenden got tested and was positive and had headache for 2 days and a scratchy throat for a day and was fine after that. Then had a Moderna vaccine. Joined 9 rounds 3-4 times per week. Does kickboxing there. Lesion on right forearm sore and red and bothering him for the past month. Follow up chronic conditions Has not been drinking alcohol and is not taking Campral for prevention. Has been busy at work at [employer] [place]. No cravings. ADHD - attention and focus are good on Adderall. Having sleepy spells. Has happened twice in the past couple of weeks and both times was at home. NEHA - There may be times he has sleepy spells during the day. Depression - controlled on current treatment that was initiated by his psychiatrist who retired. Has been stable on seroquel and wellbutrin. Crohn's disease - Used to see Dr. Oliveira, is controlled and is supposed to get a colonoscopy. Crohn's is about the same without Humira. Has not seen a GI since Tee left but is still getting his Humira. Needs colonoscopy. Ankylosing spondylitis - treated by Dr. Daniels and is under control. Used to see Dr. Culp, then after she retired saw Dr. Almaguer who told him he could not help him so he is now seeing a new pain management doctor, Tahmina. Is not giving him any medicine yet and wants to see if Dr. Stewart has any treatment to offer. Tahmina took x rays of his neck today. He was on Butrans which helped a little but then switched to tramadol and baclofen which did not help and so now is taking nothing for pain. Stopped methotrexate. Started taking celebrex thought. Started getting right hip and rarely bothers him. Insomnia - takes ambien cr 12.5 1 every night to help him sleep along with the seroquel and takes ambien about 5 nights per week. Lunesta did not help. Trazodone caused weird dreams of flashing colors. Used to drink alcohol to help him sleep. Will have a cycle of good sleep for a night and then progressively worse. Getting heartburn after dinner or in the late afternoon and started taking Nexium. Got J and J vaccine [facility]. Son was positive for Covid after cheondoism camp so Brenden got tested and was positive and had headache for 2 days and a scratchy throat for a day and was fine after that. Then had a Moderna vaccine. Joined 9 rounds 3-4 times per week. Does kickboxing there. Follow up chronic conditions Has not been drinking alcohol and is not taking acamprosate any longer. Has been busy at work at [employer] [place]. No cravings. Working out regularly for the past 2 months and feels good. ADHD - attention and focus are good on Adderall. Having sleepy spells. Has happened twice in the past couple of weeks and both times was at home. NEHA - There may be times he has sleepy spells during the day.Depression - controlled on current treatment that was initiated by his psychiatrist who retired. Has been stable on seroquel and wellbutrin. Crohn's disease - Used to see Dr. Oliveira, is controlled and is supposed to get a colonoscopy. Crohn's is about the same without Humira. Has not seen a GI since Tee left but is still getting his Humira. Needs colonoscopy but had to cancel it. Ankylosing spondylitis - treated by Dr. Daniels and is under control. Used to see Dr. Culp, then after she retired saw Dr. Almaguer who told him he could not help him so he is now seeing a new pain management doctor, Tahmina. Is not giving him any medicine yet and wants to see if Dr. Stewart has any treatment to offer. Tahmina took x rays of his neck today. He was on Butrans which helped a little but then switched to tramadol and baclofen which did not help and so now is taking nothing for pain. Started getting right hip and still bothering him at times. Insomnia - takes ambien cr 12.5 1 every night to help him sleep along with the seroquel and takes ambien about 5 nights per week. Lunesta did not help. Trazodone caused weird dreams of flashing colors. Used to drink alcohol to help him sleep. Will have a cycle of good sleep for a night and then progressively worse. Getting heartburn after dinner or in the late afternoon and started taking Nexium and then when he ran out he just used Tums. [facility] Son was positive for Covid after cheondoism camp so Brenden got tested and was positive and had headache for 2 days and a scratchy throat for a day and was fine after that. Follow up chronic conditions Has not been drinking alcohol and is taking Campral for prevention. Has been busy at work at [employer]. No cravings. ADHD - attention and focus are good on Adderall. Having sleepy spells. Has happened twice in the past couple of weeks and both times was at home. NEHA - There may be times he has sleepy spells during the dayDepression - controlled on current treatment that was initiated by his psychiatrist who retired. Has been stable on seroquel and wellbutrin. Crohn's disease - Used to see Dr. Oliveira, is controlled and is supposed to get a colonoscopy. Crohn's is about the same without Humira. Has not seen a GI since Tee left but is still getting his Humira. Needs colonoscopyAnkylosing spondylitis - treated by Dr. Daniels and is under control. Used to see Dr. Culp, then after she retired saw Dr. Almaguer who told him he could not help him so he is now seeing a new pain management doctor, Tahmina. Is not giving him any medicine yet and wants to see if Dr. Stewart has any treatment to offer. Tahmina took x rays of his neck today. He was on Butrans which helped a little but then switched to tramadol and baclofen which did not help and so now is taking nothing for pain. Started getting right hip and still bothering him at times. Insomnia - takes ambien cr 12.5 1 every night to help him sleep along with the seroquel and takes ambien about 5 nights per week. Lunesta did not help. Trazodone caused weird dreams of flashing colors. Used to drink alcohol to help him sleep. Will have a cycle of good sleep for a night and then progressively worse. Getting heartburn after dinner or in the late afternoon and started taking Nexium. [facility] Son was positive for Covid after cheondoism camp so Brenden got tested and was positive and had headache for 2 days and a scratchy throat for a day and was fine after that. Follow up chronic conditions Has not been drinking alcohol and is taking Campral for prevention. Has been busy at work at [employer] [place]. No cravingsUrology - still not having the frequency he was having before so he did not see urology. ADHD - attention and focus are good on Adderall. Having sleepy spells. Has happened twice in the past couple of weeks and both times was at home. NEHA - These may be times he has sleepy spells during the dayDepression - controlled on current treatment that was initiated by his psychiatrist who retired. Has been stable on seroquel and wellbutrin. It was increased by Dr. Daniels's [employer]. Crohn's disease - Used to see Dr. Oliveira, is controlled and is supposed to get a colonoscopy. Crohn's is about the same without Humira. Has not seen a GI since Tee left but is still getting his Humira. Ankylosing spondylitis - treated by Dr. Daniels and is under control. Used to see Dr. Culp, then after she retired saw Dr. Almaguer who told him he could not help him so he is now seeing a new pain management doctor, Tahmina. Is not giving him any medicine yet and wants to see if Dr. Stewart has any treatment to offer. Tahmina took x rays of his neck today. He was on Butrans which helped a little but then switched to tramadol and baclofen which did not help and so now is taking nothing for pain. Started getting right hip pain for the past 3 months. If he is walking it gets worse but the thinks it will be better when the weather warms up and is worse when he crosses his legs. Insomnia - takes ambien cr 12.5 1 every night to help him sleep along with the seroquel and takes ambien about 5 nights per week. Lunesta did not help. Trazodone caused weird dreams of flashing colors. Used to drink alcohol to help him sleep. Will have a cycle of good sleep for a night and then progressively worse. Getting heartburn after dinner or in the late afternoon.Got J and J vaccine last week at [facility]. Follow up chronic conditions Has not been drinking alcohol and is taking Campral for prevention. Has been busy at work at [employer]. No cravings and does not drink as long as he can sleep. Urology - still not having the frequency he was having before so he did not see urology. ADHD - attention and focus are good on Adderall. Depression - controlled on current treatment that was initiated by his psychiatrist who retired. Has been stable on seroquel but increased from 200 - 300 mg and wellbutrin. It was increased by Dr. Daniels's [employer]. Crohn's disease - Managed by Dr. Johnson and used to see Dr. Oliveira, is controlled and is supposed to get a colonoscopy. Crohn's is about the same without Humira. Would like to get the Butrans patch again. Ankylosing spondylitis - treated by Dr. Daniels and is under control. Used to see Dr. Culp, then after she retired saw Dr. Almaguer who told him he could not help him so he is now seeing a new pain management doctor, Tahmina. Is not giving him any medicine yet and wants to see if Dr. Stewart has any treatment to offer. Tahmina took x rays of his neck today. He was on Butrans which helped a little but then switched to tramadol and baclofen which did not help and so now is taking nothing for pain. Started getting right hip pain for the past 3 months. If he is walking it gets worse but the thinks it will be better when the weather warms up and is worse when he crosses his legs. Insomnia - takes ambien cr 12.5 1 every night to help him sleep along with the seroquel and takes ambien about 5 nights per week, . Was having trouble sleeping was getting very sleepy and out of it at work and was sent home from work. Lunesta did not help. Trazodone caused weird dreams of flashing colors. Used to drink alcohol to help him sleep. Will have a cycle of good sleep for a night and then progressively worse. Covid-19 - social distancing and wearing a mask and using hand agricultural equipment design engineer.Has woken up gasping for breath. He does no snore according to his but does have apneic episodes. Sometimes does not feel rested in the morning and sometimes easily sleepy in the afternoon.Stopped methotrexate for a while due to elevated liver enzymes and is due to get his blood drawn again soon. By Dr. Daniels. acute visit Has checked BP a nd has been. There have been times when he got very sleepy and takes his BP and found it was down. Other times he woke up and mouth is dry and tired and found BP to be very low. Insomnia is better since increasing Seroquel to 300 mg at bedtime. Also, Dr. Daniels gave him cyclobenzaprine. Also take ambien CR. Has fallen asleep from being so tired once while driving and the rumble strips on the side of the highway woke him up. Just headache and dry mouth are associated with it. Follow up chronic conditions Has not been drinking alcohol and is taking Campral for prevention. Has been busy at work at [employer] [place]. Urology - still not having the frequency he was having before so he did not see urology. ADHD - attention and focus are good on Adderall. Depression - controlled on current treatment that was initiated by his psychiatrist who retired. Has been stable on seroquel and wellbutrin and not planning on getting a new psychiatrist.Crohn's disease - Managed by Dr. Johnson and used to see Dr. Oliveira, is controlled and is supposed to get a colonoscopy. Crohn's is about the same without Humira. Would like to get the Butrans patch again. Ankylosing spondylitis - treated by Dr. Daniels and is under control. Used to see Dr. Culp, then after she retired saw Dr. Almaguer who told him he could not help him so he is now seeing a new pain management doctor, Tahmina. Is not giving him any medicine yet and wants to see if Dr. Stewart has any treatment to offer. Tahmina took x rays of his neck today. He was on Butrans which helped a little but then switched to tramadol and baclofen which did not help and so now is taking nothing for pain. Started getting right hip pain for the past 3 months. If he is walking it gets worse but the thinks it will be better when the weather warms up and is worse when he crosses his legs. Insomnia - takes ambien cr 12.5 1 every night to help him sleep along with the seroquel. Was having trouble sleeping was getting very sleepy and out of it at work and was sent home from work. Lunesta did not help. Trazodone caused weird dreams of flashing colors. Used to drink alcohol to help him sleep. Will have a cycle of good sleep for a night and then progressively worse. Covid-19 - social distancing and wearing a mask and using hand agricultural equipment design engineer. Follow up chronic conditions T his is a Telehealth visitHas not been drinking alcohol and is taking Campral for prevention. Has been busy at work at [employer] [place]. Urology - still not having the frequency he was having before so he did not see urology. ADHD - attention and focus are good on Adderall. Depression - controlled on current treatment that was initiated by his psychiatrist who retired. Has been stable on seroquel and wellbutrin and not planning on getting a new psychiatrist.Crohn's disease - Managed by Dr. Johnson and used to see Dr. Oliveira, is controlled and is supposed to get a colonoscopy. Crohn's is about the same without Humira. Would like to get the Butrans patch again. Ankylosing spondylitis - treated by Dr. Daniels and is under control. Used to see Dr. Culp, then after she retired saw Dr. Almaguer who told him he could not help him so he is now seeing a new pain management doctor, Tahmina. Is not giving him any medicine yet and wants to see if Dr. Stewart has any treatment to offer. Tahmina took x rays of his neck today. He was on Butrans which helped a little but then switched to tramadol and baclofen which did not help and so now is taking nothing for pain. Started getting right hip pain for the past 3 months. If he is walking it gets worse but the thinks it will be better when the weather warms up and is worse when he crosses his legs. Insomnia - takes ambien cr 12.5 1/2 every night to help him sleep along with the seroquel.Covid-19 - social distancing and wearing a mask and using hand agricultural equipment design engineer. acute visit Associated sympt oms include fatigue and sinus pain/pressure. Pertinent negatives include abdominal pain, chest pain, cough, diarrhea, dyspnea, ear drainage, polydipsia, rash, vomiting, wheezing, constipation, fever, bleeding and joint swelling.54 yo WM with UR for ten days. Started with runny nose, got better, then a couple days later got worse, burning with cough, productive. Follow up chronic conditions Has not been drinking alcohol and is taking Campral for prevention. Still getting some urges to drink especially at [place] parties. Has been busy at work at [employer] [employer]. Urology - still not having the frequency he was having before so he did not see urology. ADHD - attention and focus are good on Adderall.Depression - controlled on current treatment that was initiated by his psychiatrist who retired. Has been stable on seroquel and wellbutrin and not planning on getting a new psychiatrist.Crohn's disease - Managed by Dr. Johnson and used to see Dr. Oliveira, is controlled and is supposed to get a colonoscopy. Ankylosing spondylitis - treated by Dr. Daniels and is under control. Used to see Dr. Culp, then after she retired saw Dr. Almaguer who told him he could not help him so he is now seeing a new pain management doctor, Tahmina. Is not giving him any medicine yet and wants to see if Dr. Stewart has any treatment to offer. Tahmina took x rays of his neck today. He was on Butrans which helped a little but then switched to tramadol and baclofen which did not help and so now is taking nothing for pain. Started getting right hip pain for the past 3 months. If he is walking it gets worse but the thinks it will be better when the weather warms up and is worse when he crosses his legs. Insomnia - takes ambien cr 12.5 1/2 every night to help him sleep along with the seroquel. acute visit Chief complaint: sore throat and nasal drainage. Symptoms started 2 weeks ago Associated symptoms include cough, sore throat, nasal congestion/drainage, post-nasal drainage and ear pressure/pain. Pertinent negatives include decreased PO intake, dyspnea, fatigue, sinus pain/pressure, wheezing, fever and chills.Neck is sore. Took generic josee and chloraseptic spray. Has not been using any flonase lately. acute visit Intensive Care Medicine Specialist s ent him here because blood work came back abnormal. He has been hungry and eating more than usual. Drinking more than usual and he is concerned about diabetes. Has been gradual but noticed it more for the past month. Feels like there is something in his sock but there is nothing there. Right leg has been going numb when he drives. Dr. Almaguer gave him an injection in his neck and back recently. Moving his leg helps but when he drives he can't get the range of motion.Burning with urination if he has held it for a while.Labs reviewed and are all normal. Functional Status Date Functional Assessmen t No Information Instructions Date Instruction Additional Infor mation Sober for years. 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 Related to Psychophysiological insomnia Continue seroquel and bupropion Related to Recurrent major depressive disorder, in full remission Exam performed today . Eat a healthy diet and exercise regularly. Related to Encounter for general adult medical examination with abnormal findings Schedule appt for colonoscopy. R elated to Crohn's disease without complication, unspecified gastrointestinal tract location Not on any biologics Related to Ankylosing spondylitis of site in spine Disease prevention Ice, celebrex, stret wilfred, good padding and arch support. Start plantar fasciitis night splint wearing it while sleeping. If no improvement then refer to podiatry, [facility] in [place]. Related to Plantar fasciitis, left Dietary management e ducation, guidance, and counseling Related to Body mass index (BMI) 26.0-26.9, adult Disease process given exercises and wear soft insoles, consider even happy feet inserts Related to Plantar fasciitis, left Disease prevention Not on any biologics Related to Ankylosing spondylitis of site in spine Continue seroquel and bupropion Related to Recurrent major depressive disorder, in full remission Continue Ambien CR 1 2.5 mg at bedtime. 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 R elated to Crohn's disease without complication, unspecified gastrointestinal tract location Disease process Has been sober for a long time. 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 Get Covid vaccine and second shingles vaccine at the pharmacy. Related to Encounter for immunization Labs drawn today Related to Pros rhoades cancer screening Continue Ambien CR. 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 Schedule colonoscopy at [facility] Related to Crohn's disease without complication, unspecified gastrointestinal tract location Has been of Humira a nd methotrexate. Continue to exercise regularly. Related to Ankylosing spondylitis of site in spine Exam performed today . Eat a healthy diet and exercise regularly. Related to Encounter for general adult medical examination with abnormal findings Disease prevention Continue seroquel and bupropion Related to Recurrent major depressive disorder, in full remission Continue ambien and switch back to Ambien CR when there is not a shortage. Related to Psychophysiological insomnia Used to see Dr. Daniels but has not been on any medicine lately. Related to Ankylosing spondylitis of site in spine Due for colonoscopy. Has not see GI or been on medicine for it since he saw Dr. Oliveira in the past. Related to Crohn's disease without complication, unspecified gastrointestinal tract location Continue Vyvanse and switch back to Adderall when there is not a shortage. 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 Related to Prost ate cancer screening Labs ordered. Related to Lipid screening Labs ordered. Related to long-term current use of therapeutic drug Labs ordered. Related to Raciel jara for diabetes mellitus Off methotrexate. No t seeing Dr. Daniels any longer. Related to Ankylosing spondylitis of site in spine Continue Ambien CR Related to Ps ychophysiological insomnia Continue Seroquel and bupropion Related to Recurrent major depressive disorder, in full remission Continue Adderall Related to ADH D, predominantly inattentive type Colonoscopy ordered. Related to Crohn's disease without complication, unspecified gastrointestinal tract location Disease process Get fasting labs jamil wn at earliest convenience. Related to Prostate cancer screening Not on humira and BM 's are normal. Needs to schedule colonoscopy. Related to Crohn's disease without complication, unspecified gastrointestinal tract location Get fasting labs jamil wn at earliest convenience. Related to Lipid screening Off methotrexate. 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 Related to Ankylosing spondylitis of site in spine Get fasting labs jamil wn at earliest convenience. Related to Screening for diabetes mellitus Get fasting labs jamil wn at earliest convenience. Related to long-term current use of therapeutic drug Continue Ambien CR Related to Ps ychophysiological insomnia Continue Seroquel and bupropion Related to Recurrent major depressive disorder, in full remission Continue Adderall Related to ADH D, predominantly inattentive type Disease process Continue seroquel and bupropion. Related to Recurrent major depressive disorder, in full remission Controlled with Adderall. Relate d to ADHD, predominantly inattentive type Continue ambien as needed. Relat ed to Psychophysiological insomnia Continue treatment by Dr. Frances pal to Ankylosing spondylitis of site in spine Schedule colonoscopy Related to Crohn's disease without complication, unspecified gastrointestinal tract location Dietary management e ducation, guidance, and counseling Related to Body mass index (BMI) 27.0-27.9, adult Disease process Use CPAP every night Related to NEHA (obstructive sleep apnea) Needs colonoscopy. C ontinue Humira. Related to Crohn's disease without complication, unspecified gastrointestinal tract location Lipid panel order se nt to Dr. Daniels to do with next blood draw. Related to Lipid screening Continue Adderall. Related to AD HD, predominantly inattentive type Managed by Dr. Daniels. Related to Ankylosing spondylitis of site in spine On forehead. Cryo pe rformed today. Related to Actinic keratosis Disease process Continue Campral Related to Alco holism in remission Controlled with curr ent treatment. Related to Recurrent major depressive disorder, in full remission Use CPAP every night Related to NEHA (obstructive sleep apnea) Continue aderrall. Related to AD HD, predominantly inattentive type Continue Seroquel 30 0 mg every night and ambien cr 12.5 as needed. Related to Psychophysiological insomnia Still on Humira. Neenrike snyder to schedule appt with GI. Related to Crohn's disease without complication, unspecified gastrointestinal tract location Methotrexate was sto pped due to abnormal labs. Followed by Dr. Frances. Related to Ankylosing spondylitis of site in spine Disease process Dietary management e ducation, guidance, and counseling Related to Body mass index (BMI) 27.0-27.9, adult Continue aderrall. Related to AD HD, predominantly inattentive type Stable on current treatment. Rel ated to Crohn's disease without complication, unspecified gastrointestinal tract location Apneic episodes. Romaine e sleep study ordered. Related to Sleep apnea, unspecified type Methotrexate is on h old pending further blood work. Related to Ankylosing spondylitis of site in spine Continue Seroquel 30 0 mg every night and ambien cr 12.5 as needed. Related to Psychophysiological insomnia Disease process Could be side effect of multiple sleep medicines not wearing off by morning. Monitor for worsening of symptoms and may have to cut back on nighttime medicines. Blood pressure is normal today. I don't think a drop in blood pressure is the cause of sleepiness. Related to Somnolence, daytime Disease process Continue current med icine. Status: Meeting treatment plan goals. Goals: Your goal is to manage your medicine. Barriers: No barriers to goal achievement have been identified. Related to Recurrent major depressive disorder, in full remission Has not drank in months. Related to Alcoholism in remission Continue Humira and methotrexate. Continue Butrans patch for chronic pain. Related to Ankylosing spondylitis of site in spine Continue Humira Related to Crohn 's disease without complication, unspecified gastrointestinal tract location Controlled with adderall. Relate d to ADHD, predominantly inattentive type Continue Ambien CR 1 2.5 mg 1 nightly and increase seroquel to 300 mg 1 at bedtime. If that doesn't help then will try doxepin 10 mg. Related to Psychophysiological insomnia Disease process Continue Wellbutrin. Related to Recurrent major depressive disorder, in full remission Has been off methotr exate since . Restart Butrans 15 mcg/hour patch weekly. Related to Ankylosing spondylitis of site in spine Has not been drinkin g and not taking anything for prevention Related to Alcoholism in remission Has been off Humira since Covid-19. Related to Crohn's disease without complication, unspecified gastrointestinal tract location Disease process Bronchitis vs Commun ity acquired Pneumonia, start antibiotics and get Xray. Use Mucinex - DM, rest and fluids. Call if not improving in 2 days Related to Acute bronchitis, unspecified organism Disease process Dietary management e ducation, guidance, and counseling Related to Body mass index (BMI) 22.0-22.9, adult Status: Meeting zander tment plan goals. Goals: Your goal is to manage your medicine. Barriers: No barriers to goal achievement have been identified. Related to Recurrent major depressive disorder, in full remission Continue current fabrizio atment from Dr. 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 Related to Alcoh olism in remission Disease process Continue generic all egra daily and start Nasacort 2 sprays in each nostril daily. Continue chloraseptic spray and is ok to continue saline nasal spray. Related to Seasonal allergic rhinitis, unspecified trigger Disease process Recent injection. Related to Ank ylosing spondylitis of site in spine Blood sugar, urine g lucose and UA are normal. Related to Polyuria Disease process Assessments Type Assessment Date No Information Patient Care Teams Name Effective Dates (start - stop) Status Members No Information
--- OUTSIDE RECORDS SUMMARY | 2025-02-09 00:58 | XMS_ITS | Clinical Summary ---
Author Organization [facility] Address [address] [place] [address] Care Team Providers Care Clinic Business Manager Name Role Phone EduardoMike garcias Primary Care Provider [phone] Source Comments [facility],non-owned Affiliates and Associated Physician Practices is amultiple site organization consisting of ambulatory clinics and hospital sitesin [place], [place], [place] and [place]. This disclosure is being madepursuant to the Care Everywhere program and may not contain all information available regarding this patient. Last updated 18.[facility] Allergies Active Allergy Reactions Criticality Noted Date Comments Sulfa Drugs Urticaria,Rash 06/07/2009 Medications * Be aware that medications may not be up to date on this document. Alwaysverify current medications with the patient. gabapentin (NEURONTIN) 600 MG tablet Take 2 Tabs by mouth 3 times daily. Active buPROPion SR 12hr (WELLBUTRIN-SR) 150 MG tablet Take 150 mg by mouth 2 times daily. Active quetiapine (SEROQUEL) 200 MG tablet Take 200 mg by mouth at bedtime. Active methotrexate (RHEUMATREX) 2.5 MG tablet Take 6 Tabs by mouth every Sunday. Active REMICADE IV by Intravenous route. Every 6 weeks Active zolpidem (AMBIEN) 10 MG tablet Take 10 mg by mouth nightly as needed for Insomnia. Active diazepam (VALIUM) 5 MG tablet Take 1 Tab by mouth every 6 hours as needed for Anxiety. Muscle Spasms 60 0 9 Active docusate sodium (COLACE) 100 MG capsule Take 1 Cap by mouth 2 times daily as needed for Constipation. 20 0 9 Active cetylpyridinium chloride (CEPACOL) 2 MG lozenge Take 1 Lozenge by mouth as needed for Sore Throat. 30 1 9 Active hydrocodone-milana taminophen (NORCO) 7.5-325 MG tablet Take 1-2 Tabs by mouth every 4 hours as needed for Pain. 60 1 9 Active Multi-Vitamin TABS Take 1 Tab by mouth daily. 35 0 9 Active Active Problems Problem Noted Date Diagnosed Date Pain in soft tissues of limb 06/08/2009 Social History Tobacco Use Types Packs/Day Years Used Date Smoking Tobacco: Every Day Cigarettes 1 20 Comments:Trying to stop/ Usi ng electric cigarette since this past weekend Alcohol Use Standard Drinks/Week Comments No 0 (1 standard drink = 0.6 oz pur e alcohol) Sex and Gender Information Value Date Recorded Sex Assigned at Not on file Legal Sex Male 7:44 AM [employer]IVE IN [employer] Gender Identity Not on file Sexual Orientation Not on file Last Filed Vital Signs Vital Sign Reading Time Taken Comments Blood Pressure 120/81 06/09/2009 8:29 AM CDT Pulse 98 06/09/2009 8:29 AM CDT Temperature 36.9 C (98.4 F) 06/09/2009 8:00 AM CDT 98.4 Respiratory Rate 18 06/09/2009 8:00 AM CDT Oxygen Saturation 95% 06/09/2009 8:29 AM CDT Inhaled Oxygen Concentration - - Weight 71.7 kg (158 lb) 06/08/2009 6:03 AM CDT Height 180.3 cm (5' 11 ) 06/08/2009 6:03 AM CDT Body Mass Index 22.04 06/08/2009 6:03 AM CDT Plan of Treatment Health Maintenance Due Date Last Done Comments COLOGUARD (AGES 45-75) - COL ON CA SCREENING 1967 COLON MONITORING 1967 COLONOSCOPY - COLON CA SCREENING 1967 CT COLONOGRAPHY - COLON CA SCREENING 1967 Colorectal Cancer Screening 1967 FIT - COLON CA SCREENING 1967 FLEX SIG - COLON CA SCREENING 1967 LIPID TESTING 1967 HIV SCREENING 1982 HEPATITIS C SCREENING 09/13/1985 DTAP/TDAP/TD VACCINES (1 - Tdap) 1986 HEPATITIS B VACCINE (1 of 3 - 19+ 3-dose series) 1986 PNEUMOCOCCAL VACCINE 50+ (1 of 2 - PCV) 1986 PNEUMOCOCCAL VACCINE (1 of 2 - PCV) 1986 ZOSTER VACCINE (1 of 2) 2017 COVID-19 VACCINE (1 - 2023-2 5 season) 2024 DEPRESSION SCREENING 10/29/2024 INFLUENZA VACCINE (Season Ended) 2025 HIB VACCINE Aged Out No longer eligi ble based on patient's age to complete this topic HPV VACCINE Aged Out No longer eligi ble based on patient's age to complete this topic MENINGOCOCCAL (Group B) VACC INE SHARED DECISION-MAKING Aged Out No longer eligibl e based on patient's age to complete this topic MENINGOCOCCAL GROUPS A/C/Y/W VACCINE Aged Out No longer eligible b ased on patient's age to complete this topic Advance Directives * Full Code (Latest Code Status on File) Date Activated Date Inactivated Comments 06/08/2009 9:47 AM 06/09/2009 11:05 PM Care Teams Clinic Business Manager Relationship Specialty [place] [address] [facility] [address] [place] [address] PCP - General 06/04/09
--- OUTSIDE RECORDS SUMMARY | 2025-02-09 00:58 | XMS_ITS | Clinical Summary ---
Author Organization [facility] Address [address] [place] [address] Phone Care Team Providers Care Nut Steamer Name Role Phone EduardoMike garcias Primary Care Provider [phone] Allergies Active Allergy Reactions Criticality Noted Date Comments Sulfasalazine Rash,Hives High 06/07/2009 Medications HUMIRA PEN 40 mg/0.8 mL Pen Injector KitIndications: Drowsiness 07/05/2017 Active baclofen (LIORESAL) 10 mg tabletIndicatio ns:Drowsiness Take by mouth 3 times daily . 09/15/2017 Active buPROPion HCl (WELLBUTRIN XL) 300 mg Extended Release 24 hour tabletIndicatio ns:Drowsiness TAKE 1 TABLET BY MOUTH EVERY DAY 3 08/15/2017 Active BUTRANS 15 mcg/hour Patch WeeklyIndicatio ns:Drowsiness 09/17/2017 Activ e gabapentin (NEURONTIN) 600 mg tabletIndicatio ns:Drowsiness Take 1,200 mg by mouth 3 times daily. 2 08/12/2017 Active methotrexate (RHEUMATREX) 2.5 mg TabletIndicatio ns:Drowsiness TAKE 6 TABLETS BY MOUTH ONCE WEEKLY 1 09/09/2017 Active QUEtiapine (SEROquel) 200 mg tabletIndicatio ns:Drowsiness Take 200 mg by mouth. Active dextroamphetami ne-amphetamine (ADDERALL) 20 mg tabletIndicatio ns:Drowsiness Take 20 mg by mouth 1 time daily as needed. 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[employer] Gender Identity Not on file Sexual Orientation Not on file Last Filed Vital Signs Vital Sign Reading Time Taken Comments Blood Pressure 122/78 02/15/2018 2:47 PM CDT Pulse 86 02/15/2018 2:47 PM CDT Temperature - - Respiratory Rate - - Oxygen Saturation 98% 02/15/2018 2:47 PM CDT Inhaled Oxygen Concentration - - Weight 74.8 kg (165 lb) 02/15/2018 2:47 PM CDT Height 170.2 cm (5' 7 ) 02/15/2018 2:47 PM CDT Body Mass Index 25.84 02/15/2018 2:47 PM CDT Plan of Treatment Health Maintenance Due Date Last Done Comments DTAP/TDAP/TD VACCINES (1 - Tdap) 1986 HEPATITIS B VACCINES (1 of 3 - 19+ 3-dose series) 08/30 COLORECTAL SCREENING 2012 Colorectal Cancer Screening 2012 FIT-DNA Q 3 years 2012 FIT/FOBT Q 1 year 2012 Flex Sig/CT Colonography Q 5 years 2012 ZOSTER VACCINE (1 of 2) 2017 INFLUENZA VACCINE (#1) 2024 Care Teams Nut Steamer Relationship Specialty Start Date End Date Mike Clark DO PCP - General Family Practice 09/18/17
--- OUTSIDE RECORDS SUMMARY | 2025-02-09 00:58 | XMS_ITS | Continuity of Care Document ---
Author Organization [facility] Address [address] [place] [address] Phone Care Team Providers Care Owner Operator Name Role Phone Andrew Stewart MD Unavailable Unavailable Allergies, Adverse Reactions, Alerts Substance Reaction Status Criticality sulfanilamide Active No Information Medications Medication Instructions Dosage Effective Dates (start - stop) Status Comments Naprosyn 500 mg tablet take 1 tablet by oral route 2 times every day with food 500 MG - Active tramadol 50 mg tablet take 1 tablet by oral route every 6 hours as needed 50 MG - Active AMBIEN (unknown strength) take 1 tablet by oral route every day at bedtime Not Available - Active HUMIRA (unknown strength) Not Available - Active BUTRANS (unknown strength) Not Available - Active ADDERALL (unknown strength) Not Available - Active GABAPENTIN (unknown strength) Not Available - Active SEROQUEL (unknown strength) Not Available - Active Procedures Procedure Date OFFICE/OUTPATIENT VISIT EST RADEX SPI CRV 2/3 VIEWS OFFICE/OUTPATIENT VISIT NEW OFFICE/OUTPATIENT VISIT EST OFFICE/OUTPATIENT VISIT EST OFFICE/OUTPATIENT VISIT EST Advance Directives Directive Yes / No Effective Date File Name No Information Encounters Encounter Description Practice Location Reason(s) For Visit Diagnoses Date Provider Providers Copied on Encounter OFFICE/OUTPA TIENT VISIT EST [facility], [address], [place], [address], tel:[phone] [facility] My neck is still very stiff and sore (chief complaint) Body mass index (BMI) 24.0-24.9, adultNeck painAnkylosing spondylitis of cervical regionPseudoarthr osis of cervical spine, initial encounter 0 Pat Morales. [address] [facility], [place], [place], [id number] . tel: [phone] OFFICE/OUTPA TIENT VISIT NEW [facility], [address] [address], [place], [address], [place] tel:[phone] [facility] My neck and shoulder blade hurt alot (chief complaint) Body mass index (BMI) 24.0-24.9, adultNeck painAnkylosing spondylitis of cervical region 9 Pat Morales. [address] [facility], [place], [place], [id number] . tel: [phone] Referring Provider: Mike Harkins, [address], [place], [address]. tel:[phone] OFFICE/OUTPA TIENT VISIT EST [facility], [address], [address], [place] tel:[phone] [facility] Body Mass Index 29.0-29.9, adultDietary surveillance and counselingCarpal tunnel syndromeNeck pain 4 Pat Morales. [address] [facility], [place], [place], [id number] . tel: [phone] Referring Provider: Mike Harkins, [address], [place], [address]. tel:[phone] OFFICE/OUTPA TIENT VISIT EST [facility], [address], [address], [place] tel:[phone] [facility] Body Mass Index 29.0-29.9, adultDietary surveillance and counselingCarpal tunnel syndrome 4 Pat Morales. [address] [facility], [place], [place], [id number] . tel:[phone] Referring Provider: Mike Harkins, [address], [place], [address]. tel:[phone] OFFICE/OUTPA TIENT VISIT EST [facility], [address] [facility] [address], [place], [address], [place] tel:[phone] [facility] Body Mass Index 29.0-29.9, adultDietary surveillance and counselingNeck painCarpal tunnel syndrome 4 Pat Morales. [address] [facility] [address] , [place], [place], [id number] . tel:[phone] Referring Provider: Mike Harkins, [address] , [place], [address]. tel:[phone] [facility], [address] [facility] [address] [facility] [address], [place], [address], [place] tel:[phone] [facility] No Information 4 Pat Morales. [address] , [place], [place], [id number] . tel:[phone] Family History Family Member Type Diagnosis Age At Onset Mother Problem (finding) dementia Father Problem (finding) hypertension Father Problem (finding) Arthritis Payers Payer name Insurance type Covered alliance party ID Authorgraysona lorenzo(s) Blue Access PPO E2 OT [id number] Social History Type Description Quantity Date Captured Comments Alcohol Use Details Unknown Caffeine Use Details Unknown Tobacco Use Status Ex-cigarette smoker 020 Smoking Status Former smoker Smoking Tobacco Use Details Cigarette: Age Stopped: 44 Cigarette: No Details Available Sex Male Vital Signs Date / Time: Height Weight BMI Pulse Rate Blood Pressure Temperature Respiratory Rate Body Surface Area Head Circumference Head Circ. Percentile Wt./Chong. Percentile BMI percentile Pulse Ox Inhaled Ox 4:40 PM 68.00 in 72.575 kg (160.00 lbs) 24.3 3 kg/m eter (2) Chief Complaint And Reason For Visit From encounter dated '11/24/2019 16:15'. My neck is still very stiff and sore (chief complaint) Reason For Referral Reason For Referral No Information Plan Of Treatment Date Type Action Status Referral Ordered: RADEX SPI CRV 2/3 VIEWS ordered Referral Ordered: MUSC TEST DONE W/N TEST COMP (EMG/NCS) Bilateral upper ext Appointment date/timeframe: 11/27/2013 ordered History Of Present Illness Encounter Date Complaint History Of Prese nt Illness My neck is still very stiff and sore My neck and shoulder blade hurt alot Functional Status Date Functional Assessmen t Pain Score 6/10 Instructions Date Instruction Additional Infor matwaqas Dr. Gabriel Hidalgo [id number] [facility] [address] [phone] Related to Pseudoarthrosis of cervical spine, initial encounter Dietary needs education Related to Body mass index (BMI) 24.0-24.9, adult At this time, I feel the patient would benefit from a course of non-operative management. I will start the patient on Naprosyn 500mg p.o. b.i.d. for the next three weeks. I will also start the patient in physical therapy to work on range of motion and strengthening of the cervical spine and modalities as seen fit by the physical therapist. I discussed with the patient the importance of continuing home therapy once formal therapy has ended. I would like to see the patient again in six weeks. All the patient's questions were answered. Related to Ankylosing spondylitis of cervical region OTC Medication Activity as tolerated cont to wear splint OTC anti-inflammatories (NSAIDs) OTC Medication Continue current medication Activity as tolerated wear splint at night Take new medication as prescribe d Activity as tolerated Do not stop meds whe n symptoms resolve Assessments Type Assessment Date assessment Body mass index (BMI) 24.0-24.9, adult assessment Neck pain assessment Ankylosing spondylitis of cervic al region assessment Pseudoarthrosis of cervical spin e, initial encounter Patient Care Teams Name Effective Dates (start - stop) Status Members No Information
--- OUTSIDE RECORDS SUMMARY | 2025-02-09 00:58 | XMS_ITS | Patient Health Record ---
Author Organization [employer] Address [address] [facility] [address] [place], [place] [id number] Care Team Providers Care Child Care Director Name Role Phone PANFILO ORO Primary Care Provider Leila Pace Unavailable [phone] ALLERGIES Allergen (clinical drug ingredient) Drug/Non Drug Allergy documented on EMR Reaction Allergy Type Onset Date Status sulfa Unknown Drug Allergy Active REASON FOR REFERRAL No Information MEDICATIONS Medication SIG (Take, Route, Frequency, Duration) Notes Start Date End Date Status folic acid 1 mg 1 tab(s) orally once a day Active Seroquel 200 mg 1 tab(s) orally hs Active Adderall prn Active Vitamin D2 (obsolete) once a day Active buPROPion 300 mg 1 tab(s) orally once a day Active Humira Pen 40 mg/0.4 mL INJECT 1 PEN UND ER THE SKIN EVERY 14 DAYS. (TX) subcutaneously every other week for 90 days Active vitamin B complex once a day A ctive Ambien prn Active Gabapentin 600.0 Milligram 1TABLETS 3 TI MES A DAY FOR 30 DAYS Active Cyclobenzaprine Hydrochloride 5 mg 1-2 tab(s) orally qhs as needed for 30 Active SOCIAL HISTORY Sex Assigned At : Social History Observation Description Sex Assigned At Unknown PROBLEMS Problem Type ICD Code Onset Dates Problem Status W/U Status Risk SNOMED Code Notes Problem Other residential (current) drug therapy (Z79.899) Active confirmed 094730320 Problem Ankylosing spondylitis (M45.9) Active confirmed 4916351 Problem Low back pain (M54.5) Active confirmed 257202526 Problem Crohns disease (K50.90) Active confirmed 55526911 Problem Elevated LFTs (R79.89) Active confirmed 001680765 Problem Former smoker (Z87.891) Active confirmed 4430717 PLAN OF TREATMENT Pending Test Test Name Order Date AST (SGOT) 07/25/2020 AST (SGOT) 09/02/2020 Creatinine, Serum 06/09/2013 Creatinine, Serum 06/22/2019 ALT (SGPT) 07/25/2020 ALT (SGPT) 09/02/2020 ALERA (IH) 06/26/2014 INJ TRIAMCINOLONE ACETONIDE 10 MG 2018 AST (IH) 08/07/2013 ALT (IH) 08/07/2013 Creatinine (IH) 08/07/2013 X ray : Knee, right 3 views- outside ord er 03/20/2019 Lab slip given 03/23/2016 Future Test Test Name Order Date AST (SGOT) 04/29/2020 Creatinine, Serum 04/29/2020 ALT (SGPT) 04/29/2020 CBC With Differential/Platelet 0 Lab slip given 04/29/2020 Insurance Providers Payer Name Payer Address Payer Phone Subscriber Number Group Number Insured Name Patient Relationship to Insured Coverage Start Date Coverage End Date [facility] [address] [address] [place] [address] [id number] Brenden Salazar Self - patient is the insured 2019 MEDICAL (GENERAL) HISTORY Medical History History ICD Code Tension headaches swollen glands in neck high blood pressure rectal bleeding stomach pain/cramps ulcers Surgical History Surgery Date(Month/Year) neck surgery 2008, 02/2019 lower Back surgery 02/2019
[2025-02-09 07:44] VITALS: BP 120/72; PULSE 83; RESP 20; TEMP 35.9; O2SAT 97; BMI 25.9
[2025-02-09] MEDS: LACTATED RINGERS 1,000 ML 150 ML IV CONT (07:54)
--- NOTE | 2025-02-09 08:34 | PM.HPGS ---
History of Present Illness History of Present Illness Consent: Risks, benefits, and alternatives have been discussed and questions answered. Patient agrees to proceed with procedure. Chief complaint: Crohns disease Narrative: Brenden Stallworth is a 59 year old male diagnosed with Crohn's disease more than 20 years ago, also h/o - he used to be on humira but discontinued 2019 because pandemia however he has not had any new gi issues and he is asymptomatic. Last colonoscopy 10 years ago Review of Systems Review of Systems: All systems reviewed & are unremarkable except as noted in HPI and below [facility] Past Medical History Medical History (Updated 02/09/25 @ 08:35 by Hoonrio Roger MD) History of Crohn's disease Social History Social History Years smoked: 15 Smoking status: Former smoker Tobacco type: cigarettes Alcohol intake: former Alcohol use details: former alcohol abuse 20 years ago Substance use: never Substance use type: does not use Living arrangements: with family Spiritual care concerns: No Meds Home Medications and Allergies Home Medications ?Medication ?Instructions ?Recorded ?Confirmed ?Type bupropion HCl 300 mg 24 hr tablet, 300 mg PO DAILY 01/28/25 02/09/25 History extended release quetiapine 300 mg tablet 300 mg PO DAILY 01/28/25 02/09/25 History zolpidem 12.5 mg tablet,extended 12.5 mg PO QHS 01/28/25 02/09/25 History release,multiphase folic acid PO DAILY 02/09/25 History Allergies Allergy/AdvReac Type Severity Reaction Status Date / Time Sulfa (Sulfonamide Allergy Severe Rash Verified 02/09/25 07:42 Antibiotics) Vital Signs Vital Signs - 24 hr 02/09/25 07:44 Temperature 96.7 F L Pulse Rate 83 Respiratory Rate 20 Blood Pressure 120/72 Pulse Oximetry 97 Oxygen Delivery Room Air Exam Const: General: comfortable and no acute distress HENMT: Face/Nose/Sinus: Normal nares present Eyes: General: appearance normal, both eyes and all related structures Neck: Neck: no JVD Resp: Auscultation: clear to auscultation bilaterally Cardio: Rate: regular rate Rhythm: regular rhythm GI: Inspection: non-distended GI Palp: Yes Soft to palpation Skin: General skin exam: normal color Neuro: General: gait normal Speech: normal speech Extrem: General: normal to inspection Psych: Mental Status: mental status grossly normal Assessment and Plan Assessment and plan (1) History of Crohn's disease: Code(s): Z87.19 - Personal history of other diseases of the digestive system Status: Acute Assessment and Plan: colonoscopy
--- NOTE | 2025-02-09 08:45 | WPDANESEPPF ---
Anes - Initial Pre Proc Eval Procedure: Operation Date: 02/09/25 09:00 Proposed Procedures p Colonoscopy - Honorio Roger MD Date/Time: 02/09/25 08:45 Surgeon: Honorio Roger MD Pre Op Diagnosis: Crohns disease Patient Data Age: 59 Gender: M Height: 1.75 m Weight: 79.8 kg Last Vital Signs Temp 96.7 F L 02/09/25 07:44 Pulse 83 02/09/25 07:44 Resp 20 02/09/25 07:44 BP 120/72 02/09/25 07:44 Pulse Ox 97 02/09/25 07:44 O2 Del Method Room Air 02/09/25 07:44 Allergies Allergy/AdvReac Type Severity Reaction Status Date / Time Sulfa (Sulfonamide Allergy Severe Rash Verified 02/09/25 07:42 Antibiotics) Home Medications ?Medication ?Instructions ?Recorded ?Confirmed ?Type bupropion HCl 300 mg 24 hr tablet, 300 mg PO DAILY 01/28/25 02/09/25 History extended release quetiapine 300 mg tablet 300 mg PO DAILY 01/28/25 02/09/25 History zolpidem 12.5 mg tablet,extended 12.5 mg PO QHS 01/28/25 02/09/25 History release,multiphase folic acid PO DAILY 02/09/25 History Patient hx anesthesia problems: none Family hx anesthesia problems: none Results Review: All pre-operative results and documents have been reviewed as part of the pre-operative evaluation. [facility] Past Medical History Medical History (Updated 02/09/25 @ 08:35 by Honorio Roger MD) History of Crohn's disease Social History Social History Years smoked: 15 Smoking status: Former smoker Tobacco type: cigarettes Alcohol intake: former Alcohol use details: former alcohol abuse 20 years ago Substance use: never Substance use type: does not use Living arrangements: with family Spiritual care concerns: No Anes - Eval Final PreProcedure Day of Procedure 02/09/25 08:45 Patient weight: normal Heart: regular rate and rhythm Lungs: clear to auscultation Airway: Mallampati scale class II Neurological: alert and oriented Last oral intake: >/= 8 hours ASA classification: II Emergent: no Anesthetic plan: proceed Anesthesia type and monitoring: general GIVS and standard monitoring Results Review: All pre-operative results and documents have been reviewed as part of the pre-operative evaluation. Informed Consent: The patient's anesthetic plan and its attendant risks and benefits were discussed with the patient/family/POA. Questions were solicited and answers provided to the satisfaction of the patient/family/POA.
[2025-02-09 08:47] VITALS: BP 114/69; PULSE 67; RESP 18; O2SAT 95
[2025-02-09 08:57] VITALS: BP 100/65; PULSE 66; RESP 17; O2SAT 95
[2025-02-09 09:07] VITALS: BP 123/76; PULSE 66; RESP 20; O2SAT 99
== END 2025-02-09 09:18 | disposition home or self-care (01) ==
PROVIDERS: Visit Provider Internal Medicine Gastroenterology
PROC: 0DJD8ZZ Inspection of Lower Intestinal Tract, Via Natural or Artificial Opening Endoscopic (ICD-10-PCS; CPT 45378; principal; 2025-02-09 09:00)
DX: Z12.11 Encounter for screening for malignant neoplasm of colon (principal); K64.8 Other hemorrhoids; K57.30 Diverticulosis of large intestine without perforation or abscess without bleeding; Z87.891 Personal history of nicotine dependence; Z87.19 Personal history of other diseases of the digestive system
CPT/HCPCS: 45378; J2003; J2704; J7120

== ENCOUNTER 2025-09-29 12:46 | Outpatient (CLI) | payer BC, SELFPAY ==
--- NOTE | ~2025-09-29 | MR_ITS ---
EXAMINATION: MR foot LT wo con DATE: 09/29/2025 13:26 INDICATION: Peroneal tendinitis TECHNIQUE: Magnetic resonance imaging (MRI) of the left mid and hindfoot including the ankle was performed without intravenous contrast. Sequences included axial PD-weighted FSE, axial and coronal PD-weighted FS FSE, sagittal and coronal T1-weighted FSE and sagittal fluid sensitive FSE STIR. COMPARISON: None. FINDINGS: Medial ankle ligaments: Deep and superficial deltoid ligaments as well as the spring ligament are normal. Lateral ankle ligaments: The anterior and posterior inferior tibiofibular ligaments are normal. The anterior talofibular, calcaneofibular and posterior talofibular ligaments are normal. Tendons: Achilles tendon is normal. The peroneus longus tendon is normal. There is mild tendinopathy and small longitudinal split tear of the peroneus brevis tendon centered near the level of the peroneal trochlea. The tibialis anterior and extensor hallucis longus and extensor digitorum longus tendons are normal. The tibialis posterior, flexor digitorum longus and flexor hallucis longus tendons are normal. Plantar fascia: There is thickening and increased signal of the proximal plantar aponeurosis with small plantar calcaneal spur consistent with chronic enthesopathy. There is a tear along the calcaneal origin of the majority the central and medial components of the plantar aponeurosis with up to 2 cm distal retraction. There is mild stranding marrow and soft tissue edema consistent with mild plantar fasciitis. Bones/other: Bone alignment is normal. 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 Bone marrow signal is otherwise normal. No fracture or pathologic marrow replacing process. Fluid: No joint effusions or other abnormal fluid collections. IMPRESSION: 1. Mild tendinopathy and small longitudinal split tear along the peroneus brevis tendon centered at the level of the mid calcaneus. 2. Acute on chronic plantar fasciitis with partial tear of the proximal plantar aponeurosis involving the majority of the central and medial components. Reviewed, dictated and finalized at location A. AGENT IMPRESSION: 1. Mild tendinopathy and small longitudinal split tear along the peroneus brevi s tendon centered at the level of the mid calcaneus. 2. Acute on chronic plantar fasciitis with partial tear of the proximal plantar aponeurosis involving the majority of the central and medial components.
== END 2025-09-29 12:47 | disposition home or self-care (01) ==
PROVIDERS: Visit Provider Podiatrist Foot & Ankle Surgery
DX: M76.72 Peroneal tendinitis, left leg (principal); M72.2 Plantar fascial fibromatosis
CPT/HCPCS: 73718